=== PATIENT | female | born 1950 | race Caucasian/White ===

== ENCOUNTER 2021-10-09 13:15 | Emergency (ER) | payer MEDICARE ==
[2021-10-09] VITALS (9 sets, daily range): BP systolic 110–154; BP diastolic 60–92
[~2021-10-09] VITALS: Ht 170.2 cm; Wt 59.1 kg
[~2021-10-09 13:15] MED LIST: AUGMENTIN500TAB PO; BAYER ASA325 MG OR; NO MEDS
== END 2021-10-09 15:00 | disposition home or self-care (01) ==
LOC: ED 13:15
PROC: 0HQ0XZZ Repair Scalp Skin, External Approach (ICD-10-PCS; principal; 2021-10-09)
DX: S01.01XA Laceration without foreign body of scalp, initial encounter (principal); Y04.2XXA Assault by strike against or bumped into by another person, initial encounter; Y92.009 Unspecified place in unspecified non-institutional (private) residence as the place of occurrence of the external cause

== ENCOUNTER 2021-10-17 11:22 | Emergency (ER) | payer MEDICARE ==
[~2021-10-17] VITALS: Ht 170.2 cm; Wt 57.0 kg
[2021-10-17 12:23] VITALS: BP 131/82
[2021-10-17 12:30] VITALS: BP 122/69
== END 2021-10-17 12:47 | disposition home or self-care (01) ==
LOC: ED 11:22
DX: S01.01XD Laceration without foreign body of scalp, subsequent encounter (principal); X58.XXXD Exposure to other specified factors, subsequent encounter

== ENCOUNTER 2023-05-10 23:19 | Emergency (ER) | payer MEDICARE | END 2023-05-10 23:42 | disposition left against medical advice (07) | LOC: ED 23:19 → LWOBS 23:41 | DX: Z53.21 Procedure and treatment not carried out due to patient leaving prior to being seen by health care provider (principal) ==